=== PATIENT | female | born 1980 | race Caucasian/White ===

== ENCOUNTER → 2018-07-17 | Outpatient (CLI) | payer OTHER ==
[2018-07-17 08:20] LABS: Basophils % (A) 1 %; Eosinophils # (A) 0.3 k/uL (0-0.7); Eosinophils % (A) 4 %; HCT 41.4 % (34.0-46.0); Lymphocytes # (A) 2.2 k/uL (1.0-4.8); Lymphocytes % (A) 36 %; MCH 30.7 pg (25.0-35.0); MCHC 33.9 g/dL (31.0-37.0); MCV 90.6 fL (80.0-100.0); Mean Platelet Volume 7.3; Monocytes # (A) 0.3 k/uL (0-1.0); Monocytes % (A) 5 %; Neutrophils # (A) 3.2 k/uL (1.3-7.7); Neutrophils % (A) 53 %; Platelet Count 273 k/uL (150-450); RBC 4.57 m/uL (3.80-5.40); RDW 12.3 % (11.5-15.5); WBC 6.1 k/uL (3.8-10.6)
[2018-07-17 17:00] LABS: Albumin 4.4 g/dL (3.80-4.90); Albumin/Globulin Ratio 1.83 (1.20-2.10); Anion Gap 6.2 mmol/L (4.00-12.00); Calcium 9.3 mg/dL (8.7-10.3); Carbon Dioxide 26.8 mmol/L (21.6-31.8); Globulin 2.4 g/dL (2.1-3.7); Potassium 4.1 mmol/L (3.5-5.5); Total Bilirubin 0.6 mg/dL (0.3-1.2); Total Protein 6.8 g/dL (6.2-8.2)
== END | disposition home or self-care (01) ==
LOC: LABWHC1 07:50
PROVIDERS: ATTEND Family Medicine
DX: Z00.00 Encounter for general adult medical examination without abnormal findings (principal); D64.9 Anemia, unspecified
CPT/HCPCS: 36415; 80053; 80061; 85025

== ENCOUNTER → 2020-04-06 | Outpatient (CLI) | payer MEDICAID ==
[2020-04-06 08:55] LABS: Basophils # (A) 0.1 k/uL (0-0.2); Basophils % (A) 1 %; Eosinophils # (A) 0.3 k/uL (0-0.7); Eosinophils % (A) 5 %; HCT 42.5 % (34.0-46.0); HGB 14.1 gm/dL (11.4-16.0); Lymphocytes # (A) 2.2 k/uL (1.0-4.8); Lymphocytes % (A) 35 %; MCH 30.1 pg (25.0-35.0); MCHC 33.2 g/dL (31.0-37.0); MCV 90.7 fL (80.0-100.0); Mean Platelet Volume 7.5; Monocytes # (A) 0.3 k/uL (0-1.0); Monocytes % (A) 5 %; Neutrophils # (A) 3.2 k/uL (1.3-7.7); Neutrophils % (A) 52 %; Platelet Count 247 k/uL (150-450); RBC 4.68 m/uL (3.80-5.40); RDW 12.4 % (11.5-15.5); WBC 6.2 k/uL (3.8-10.6)
[2020-04-06 16:33] LABS: African American GFR (CKD) 128.3 (60.0-200.0); Albumin 4.4 g/dL (3.80-4.90); Albumin/Globulin Ratio 1.63 (1.60-3.17); Anion Gap 8.5 mmol/L (4.00-12.00); BUN/Creat Ratio 14.29 Ratio (12.00-20.00); Calcium 9.5 mg/dL (8.7-10.3); Carbon Dioxide 24.5 mmol/L (21.6-31.8); Chol/HDL Ratio 3.09; Globulin 2.7 g/dL (1.6-3.3); LDL Cholesterol,Calculated 95.4 mg/dL (0.0-131.0); Non-African American GFR(CKD) 110.7 (60.0-200.0); Potassium 4.1 mmol/L (3.5-5.5); Total Bilirubin 0.6 mg/dL (0.2-1.2); Total Protein 7.1 g/dL (6.2-8.2); VLDL Calculation 21.6 mg/dL (5.00-40.00)
== END | disposition home or self-care (01) ==
LOC: LABWHC1 07:59
PROVIDERS: ATTEND Family Medicine
DX: Z00.00 Encounter for general adult medical examination without abnormal findings (principal); D64.9 Anemia, unspecified
CPT/HCPCS: 36415; 80053; 80061; 85025

== ENCOUNTER → 2021-07-09 | Outpatient (CLI) | payer MEDICAID, OTHER | END | disposition home or self-care (01) | LOC: LABWHC1 15:52 | PROVIDERS: ATTEND Emergency Medicine | DX: U07.1 COVID-19 (principal) | CPT/HCPCS: 87635 ==

== ENCOUNTER → 2022-07-01 | Outpatient (CLI) | payer MEDICAID, OTHER ==
--- NOTE | 2022-07-01 13:40 | MM ---
Reason for Exam: Clinical finding. Baseline mammogram. Patient History: Menarche at age 15. First Full-Term at age 33. Late child-bearing (after 30). Last menstrual period: 06/18/2022 Risk Values: Leyda 5 year model risk: 0.7%. NCI Lifetime model risk: 13.7%. Prior Study Comparison: Patient's first Mammogram. No prior studies available for comparison. Tissue Density: The breast tissue is extremely dense which could obscure a lesion on mammography. Findings: Analyzed By CAD. A few small scattered benign-appearing round calcifications bilaterally are identified. No obvious focal mass or suspicious groups of microcalcifications bilaterally. Overall Assessment: Incomplete: need additional imaging evaluation, BI-RAD 0 Management: Diagnostic Breast Ultrasound of the right breast. Right breast ultrasound due to palpable abnormality and background dense tissue. Results were given to the patient verbally at the time of exam. Electronically signed and approved by: Kaiser Westbrook M.D.
--- NOTE | 2022-07-01 13:59 | USB ---
Reason for Exam: Clinical finding. Patient History: Menarche at age 15. First Full-Term at age 33. Late child-bearing (after 30). Risk Values: Leyda 5 year model risk: 0.7%. NCI Lifetime model risk: 13.7%. Technique: Method: Targeted. Findings: The upper outer quadrant of the right breast, the axilla of the right breast and the retroareolar of the right breast were scanned. Targeted ultrasound shows thin-walled cysts of varying size and shape at palpable level 10:00 position on background dense tissue. Findings correlate with same day mammogram. Benign right axillary lymph node incidentally seen. Overall Assessment: Benign, BI-RAD 2 Management: Screening Mammogram of both breasts in 1 year. Manage palpable abnormality on clinical basis. Return to routine follow-up. Results were given to the patient verbally at the time of exam. Electronically signed and approved by: Kaiser Westbrook M.D.
== END | disposition home or self-care (01) ==
LOC: RADMAMWWP 13:02
PROVIDERS: ATTEND Obstetrics & Gynecology
DX: R92.8 Other abnormal and inconclusive findings on diagnostic imaging of breast (principal); N63.10 Unspecified lump in the right breast, unspecified quadrant
CPT/HCPCS: 77062; 77066

== ENCOUNTER → 2023-07-31 | Outpatient (CLI) | payer MEDICAID ==
--- NOTE | 2023-07-31 13:42 | MM ---
Reason for Exam: Clinical finding. Last mammogram was performed 1 year(s) and 1 month(s) ago. Patient History: Menarche at age 15. First Full-Term at age 33. Late child-bearing (after 30). Premenopausal. Risk Values: Leyda 5 year model risk: 0.8%. NCI Lifetime model risk: 13.6%. Tissue Density: The breast tissue is extremely dense which could obscure a lesion on mammography. Findings: Analyzed By CAD. No evidence for mass or distortion. No suspicious calcifications. Correlate clinically. Overall Assessment: Incomplete: need additional imaging evaluation, BI-RAD 0 Management: Diagnostic Breast Ultrasound of the right breast. . Results were given to the patient verbally at the time of exam. Patient should continue monthly self-breast exams. A clinical breast exam by your physician is recommended on an annual basis. This exam should not preclude additional follow-up of suspicious palpable abnormalities. Note on Leyda scores and lifetime risk: 1. A Leyda score greater than 3% is considered moderate risk. If this is the case, consider specialist referral to assess eligibility for a risk reducing agent. 2. If overall lifetime risk for the development of breast cancer is 20% or higher, the patient may qualify for future screening with alternating mammogram and breast MRI. Electronically signed and approved by: Brendan Fraga M.D. Radiologis
--- NOTE | 2023-07-31 14:18 | USB ---
Reason for Exam: Follow-up at short interval from prior study. Patient History: Menarche at age 15. First Full-Term at age 33. Late child-bearing (after 30). Premenopausal. Risk Values: Leyda 5 year model risk: 0.8%. NCI Lifetime model risk: 13.6%. Technique: Method: Targeted. Prior Study Comparison: 07/01/2022 Bilateral MG 3D diag mammo w/cad [facility], [facility]. Findings: The upper outer quadrant of the left breast was scanned. Simple cysts noted right breast 10:00 position 4 cm from the nipple measuring 2.2 x 0.8 cm. Additional simple cyst at 11:00 3 cm from the nipple measuring 0.9 x 0.6 cm. No solid masses seen. Overall Assessment: Benign, BI-RAD 2 Management: Screening Mammogram of both breasts in 1 year. A clinical breast exam by your physician is recommended on an annual basis and results should be correlated with mammographic findings. This exam should not preclude additional follow-up of suspicious palpable abnormalities. Results were given to the patient verbally at the time of exam. Electronically signed and approved by: Brendan Fraga M.D. Radiologis
== END | disposition home or self-care (01) ==
LOC: RADMAMWWP 12:53
PROVIDERS: ATTEND Obstetrics & Gynecology
DX: N63.10 Unspecified lump in the right breast, unspecified quadrant (principal); R92.343 Mammographic extreme density, bilateral breasts
CPT/HCPCS: 77062; 77066

== ENCOUNTER → 2023-09-19 | Outpatient (CLI) | payer MEDICAID ==
--- NOTE | 2023-09-19 14:08 | P.GSHP ---
History of Present Illness H&P Date: 09/19/23 Chief Complaint: breast cyst Lisa is a 43 year old white female seen in consultation for Dr. Ballard regarding breast cyst. She underwent a bilateral mammogram in 07-31-2023 which showed extremely dense breast tissue and recommendation for right breast ultrasound was given. Right breast ultrasound revealed a 2.2 x 0.8 cm cyst at 4:00 with an additional simple cyst at 11:00 was felt to be benign BI-RADS 2. She states she has had the cyst for a least a year. They are not bothering the patient. They have not changed in size. She is able to palpate them. She just comes for evaluation to make sure there is nothing further she should do. With respect to her menstrual cycle. Caffeine: 2 cups coffee/day nicotine: none chocolate: occasional BCP: used for 10 years stopped about 2011 hormones: none Family History: no cancer Hormonal History: menarche: 16 breast fed: yes, age at first : 33 periods regular, LMP 2 weeks ago Surgical History: LASIX on her eyes wisdom teeth Medicl HIstory: none Social HIstory: nicotine: none alcohol: occasional drugs: none - Constitutional Constitutional: Denies chills, Denies fever - EENT Eyes: denies blurred vision, denies pain Ears: deny: decreased hearing, tinnitus Ears, nose, mouth and throat: Denies headache, Denies sore throat - Breasts Breasts: bilateral: as per HPI - Cardiovascular Cardiovascular: Denies chest pain, Denies shortness of breath - Respiratory Respiratory: Denies cough, Denies 7 - Gastrointestinal Gastrointestinal: Denies abdominal pain, Denies diarrhea, Denies nausea, Denies vomiting - Genitourinary (Female) Genitourinary: Denies dysuria, Denies hematuria - Menstruation Menstruation: Reports period normal - Musculoskeletal Musculoskeletal: Denies myalgias - Integumentary Integumentary: Denies pruritus, Denies rash - Neurological Neurological: Denies numbness, Denies weakness - Psychiatric Psychiatric: Denies anxiety, Denies depression - Endocrine Endocrine: Denies fatigue, Denies weight change - Hematologic/Lymphatic Comment: none - Allergic/Immunologic Allergic/Immunologic: Reports as per HPI Past Medical History Past Medical History: No Reported History History of Any Multi-Drug Resistant Organisms: None Reported Past Surgical History: No Surgical Hx Reported Additional Past Surgical History / Comment(s): [place] teeth extraction in 1997 and Lasix surgery in 2009 Past Anesthesia/Blood Transfusion Reactions: No Reported Reaction Past Psychological History: No Psychological Hx Reported Past Alcohol Use History: None Reported Past Drug Use History: None Reported - Past Family History Mother Family Medical History: Hyperlipidemia Medications and Allergies Home Medications Medication Instructions Recorded Confirmed Type [id number] Acid 1 each PO DAILY 02/10/14 12/14/15 History [-U Capsule] Allergies Allergy/AdvReac Type Severity Reaction Status Date / Time amoxicillin [Amoxicillin] Allergy Rash/Hives Verified 12/14/15 06:43 Surgical - Exam - General no distress - Eyes normal ocular movement - Neck trachea midline - Respiratory normal respiratory effort - Cardiovascular Rhythm: regular Heart Sounds: normal: S1, S2 - Abdomen Abdomen: soft - Integumentary normal turgor - Neurologic no disoriented, no combative - Musculoskeletal normal gait - Psychiatric oriented to time, oriented to person, oriented to place, speech is normal, memory intact Breast Exam: BRA: 36C inspection: bilateral grade 1 ptosis palpation: right breast: Exam dense fibrocystic tissue, suspected cystic area at 10:00 corresponding with ultrasound cyst no other discrete dominant masses or nodules of concern Right axilla: No adenopathy of concern Left breast: Multi positional exam dense fibrocystic tissue, no discrete dominant masses or nodules of concern Left axilla: No adenopathy of concern Results mammogram and ultrasound personally reviewed Assessment and Plan Assessment: Impression: Fibrocystic breast changes nothing which would warrant interventional biopsy and physical exam or radiographic evaluation Plan: Repeat bilateral mammogram in 1 year Patient is asymptomatic from cystic disease at this time would follow closely if she becomes symptomatic would like to see her again sooner Lifestyle modification may decrease the cyst i.e. decrease caffeine intake the patient will consider this CC: Dr. Ballard
[2023-09-19 14:10] VITALS: BP 129/86; PULSE 72; RESP 18; TEMP 98
== END ==
LOC: WWCWWP 13:49
PROVIDERS: ATTEND Surgery
DX: N60.11 Diffuse cystic mastopathy of right breast (principal); N60.01 Solitary cyst of right breast; Z88.0 Allergy status to penicillin

== ENCOUNTER → 2024-08-02 | Outpatient (CLI) | payer MEDICAID ==
--- NOTE | 2024-08-03 15:06 | MM ---
Reason for Exam: Screening (asymptomatic). Last screening mammogram was performed 12 month(s) ago. Patient History: Menarche at age 15. First Full-Term at age 33. Late child-bearing (after 30). Premenopausal. Last menstrual period: 07/12/2024 Risk Values: Leyda 5 year model risk: 0.8%. NCI Lifetime model risk: 13.5%. Prior Study Comparison: 07/01/2022 Bilateral MG 3D diag mammo w/cad [facility], [facility]. 07/31/2023 Bilateral MG 3D diag mammo w/cad [facility], [facility]. Tissue Density: The breasts are extremely dense, which lowers the sensitivity of mammography. Findings: Analyzed By CAD. There is no suspicious group of microcalcifications or new suspicious mass in either breast. Overall Assessment: Negative, BI-RAD 1 Management: Screening Mammogram of both breasts in 1 year. . Patient should continue monthly self-breast exams. A clinical breast exam by your physician is recommended on an annual basis. This exam should not preclude additional follow-up of suspicious palpable abnormalities. Note on Leyda scores and lifetime risk: 1. A Leyda score greater than 3% is considered moderate risk. If this is the case, consider specialist referral to assess eligibility for a risk reducing agent. 2. If overall lifetime risk for the development of breast cancer is 20% or higher, the patient may qualify for future screening with alternating mammogram and breast MRI. [facility], , 08/03/2024 3:03 PM. Electronically signed and approved by: Brendan Fraga M.D. Radiologis
== END | disposition home or self-care (01) ==
LOC: RADMAMWWP 14:20
PROVIDERS: ATTEND Surgery
DX: Z12.31 Encounter for screening mammogram for malignant neoplasm of breast (principal); R92.343 Mammographic extreme density, bilateral breasts
CPT/HCPCS: 77063; 77067